=== PATIENT | male | born 1940 | race Caucasian/White ===

== ENCOUNTER 2020-06-26 14:47 | Inpatient (IN) | payer MEDICARE, SELFPAY ==
[~2020-06-26] VITALS: Ht 170.2 cm; Wt 75.3 kg
[2020-06-26 14:57] VITALS: BP 118/72
[2020-06-26] MEDS ORDERED: LORazepam 2 MG/ML VIAL IVP ONE (15:05)
--- NOTE | 2020-06-26 15:20 | NUR ---
DUNG SWAB DONE. WALKED TO LAB.
--- NOTE | 2020-06-26 15:20 | NUR ---
XRAY AT BEDSIDE
--- NOTE | 2020-06-26 15:25 | NUR ---
79YO M BIBA FROM HOME C/O SOB UPON EXERTION X 1 WEEK. PT ALSO REPORTS HAVING CHILLS. DENIES COUGH, FEVER. IN ED, VSS. AOX4. 02 SAT 98% ON RA. CLEAR BREATH SOUNDS. HR NORMAL RATE REGULAR RHYTHM. PT RESTING IN BED COMFORTABLY. ERMD MADE AWARE OF PT STATUS. PMH: CARDIAC DSE, HTN, DM NKA
[2020-06-26 15:55] LABS: HEMATOCRIT 42.1 % (36-52); HEMOGLOBIN 13.6 g/dL (12.0-18.0); MEAN CORPUSCULAR HEMOGLOBIN 29 pg (27-31); MEAN CORPUSCULAR HGB CONC 32 g/dL (33-37); MEAN CORPUSCULAR VOLUME 89.8 fL (80-94); PLATELET COUNT (AUTO) 146 K/uL (140-450); RED BLOOD CELL COUNT(AUTO) 4.69 MIL/uL (4.20-6.10); RED CELL DISTRIBUTION WIDTH 15.4 % (11.6-13.7); WHITE BLOOD COUNT (AUTO) 19.9 K/uL (4.8-10.8)
[2020-06-26 16:18] LABS: ALBUMIN 4.4 g/dL (3.4-5.0); ANION GAP 20.1 (8-16); ASPARTATE AMINOTRANSFERASE 22 U/L (15-37); CARBON DIOXIDE 19.2 mmol/L (21-32); CHLORIDE 102 mmol/L (98-107); CREATININE 1.7 mg/dL (0.6-1.3); GLUCOSE 147 mg/dL (74-106); POTASSIUM 4.3 mmol/L (3.5-5.1); SODIUM SERUM 137 mmol/L (136-145); TOTAL BILIRUBIN 3.1 mg/dL (0.0-1.0); UREA NITROGEN, BLOOD 20 mg/dL (7-18)
[2020-06-26 16:27] LABS: LYMPHOCYTES % (MANUAL) 6 % (20-46); MONOCYTES % (MANUAL) 7 % (5-12)
[2020-06-26 16:33] LABS: C-REACTIVE PROTEIN QUANT 1.3 mg/dL (0.0-0.9)
[2020-06-26] MEDS ORDERED: PIPERACILLIN/TAZOBACTAM 3.375 GM in DEXTROSE 5% 50 ML IV ONE (16:35)
[2020-06-26] MEDS ORDERED: NACL 0.9% 500 ML IV ONE (16:35)
[2020-06-26] MEDS ORDERED: VANCOMYCIN 1,000 MG in DEXTROSE 5% 250 ML IV ONE (16:35)
[2020-06-26] MEDS ORDERED: ACETAMINOPHEN 325 MG TAB PO ONE (16:35)
[2020-06-26] MEDS ORDERED: PIPERACILLIN/TAZOBACTAM 3.375 GM VIAL IV ONE (17:16)
[2020-06-26 17:28] LABS: APPEARANCE,URINE CLEAR (CLEAR); BILIRUBIN,URINE NEGATIVE (NEGATIVE); BLOOD, URINE NEGATIVE (NEGATIVE); COLOR,URINE YELLOW (YELLOW); LEUKOCYTE ESTERASE ,URINE NEGATIVE (NEGATIVE); NITRITE, URINE NEGATIVE (NEGATIVE); UGLUCOSE NEGATIVE (NEGATIVE)
[2020-06-26] MEDS ORDERED: ASPIRIN 81 MG TAB.CHEW PO ONE (17:35)
[2020-06-26] MEDS ORDERED: ACETAMINOPHEN 325 MG TAB ONE ×2 (17:53→17:54)
[2020-06-26 18:00] LABS: PROTHROMBIN TIME 11.6 secs (10.8-13.4)
[2020-06-26] MEDS ORDERED: VANCOMYCIN 1,000 MG VIAL ONE (18:02)
--- NOTE | 2020-06-26 19:36 | NUR ---
RECEIVED REPORT FROM RADHA DAILEY FOR CONTINUATION OF CARE. PT RESTING. VISIBLE RISE AND FALL OF CHEST NOTED. PT CONNECTED TO THE ELECTRONIC WARFARE OFFICER. WILL CONTINUE TO MONITOR.
--- NOTE | 2020-06-26 19:36 | NUR ---
REPORT GIVEN TO RADHA MÁRQUEZ. ALL CARE REANSFERRED AT THIS TIME
--- NOTE | 2020-06-26 20:43 | NUR ---
CALLED TO GIVE REPORT, NURSE UNABLE TO RECEIVE REPORT AT THIS TIME WILL CALL BACK IN 5-10 MINS.
--- NOTE | 2020-06-26 20:52 | NUR ---
CALLED TO GIVE REPORT TO RADHA GALE FOR TRANSFER OF CARE AND ADMISSION TO THE TELEMETRY FLOOR.
[2020-06-26 21:30] VITALS: BP 97/45
--- NOTE | 2020-06-26 21:30 | NUR ---
RECEIVED PATIENT FROM ER VIA [facility] FOR CONTINUITY OF CARE. AAOX3. RESPIRATIONS EVEN, UNLABORED. CONTINUES ON O2 4L VIA NC, O2SAT 96%. SKIN ASSESSMENT COMPLETED. SKIN IS INTACT. SALINE LOCK TO LEFT FOREARM 20G PATENT/INTACT. NO C/O PAIN. NO S/S ACUTE DISTRESS. ABDOMEN SOFT, NONTENDER. BOWEL SOUNDS ACTIVE X4 QUADRANTS. PATIENT IS CONTINENT OF B/B. PATIENT ORIENTED TO ROOM/STAFF/CALL LIGHT. MSRA SCREEN COMPLETED. PLAN OF CARE DISCUSSED. SAFETY PRECAUTIONS IN PLACE. CALL LIGHT WITHIN REACH.
--- NOTE | 2020-06-26 21:30 | NUR ---
Patient will be admitted to care of . Admited to TELEMETRY. Will go to [id number]. Belongings list completed. Report to RADHA GALE.
[2020-06-26] MEDS ORDERED: POTASSIUM CHLORIDE 40 MEQ, LIDOCAINE MPF 1% 25 MG in NACL 0.9% 250 ML IV PRN (21:55)
[2020-06-26] MEDS ORDERED: ONDANSETRON 4 MG/2 ML VIAL IM/IVP PRN (21:55)
[2020-06-26] MEDS ORDERED: guaiFENesin DM 200/20 MG-10 ML 10 ML UDC PO PRN (21:55)
[2020-06-26] MEDS ORDERED: ACETAMINOPHEN 325 MG TAB PO PRN (21:55)
[2020-06-26] MEDS ORDERED: DOCUSATE SODIUM 100 MG GELCAP PO PRN (21:55)
[2020-06-26] MEDS ORDERED: ZOLPIDEM 5 MG TAB PO PRN (21:55)
[2020-06-26] MEDS ORDERED: HYDROcodone/APAP 7.5/325 MG 1 TAB PO PRN (21:55)
[2020-06-26] MEDS ORDERED: ALBUTEROL HFA MDI 90 MCG/ACTUATION 8 GM INH PRN (22:05)
[2020-06-26] MEDS ORDERED: ALBUTEROL SULFATE/IPRATROPIU 3 ML SOL IH PRN (22:05)
[2020-06-26] MEDS: lisinopriL 5 MG TAB PO SCH (22:15)
[2020-06-26] MEDS: METOPROLOL 25 MG TAB PO SCH (22:15)
[2020-06-26] MEDS ORDERED: NITROGLYCERIN 0.4 MG TAB SL PRN (22:15)
[2020-06-26 23:21] LABS: CHOL/HDL RATIO 1.9 (1-4.5); FREE T4 (FREE THYROXINE) 1.72 ng/dL (0.76-1.46); MAGNESIUM 1.4 mg/dL (1.8-2.4); PHOSPHORUS 2.7 mg/dL (2.5-4.9); THYROID STIMULATING HORMONE 0.94 uIU/mL (0.34-3.74)
--- NOTE | 2020-06-26 23:30 | NUR ---
PATIENT RESTING COMFORTABLY IN BED. NO S/S ACUTE DISTRESS. CALL LIGHT WITHIN REACH. SAFETY PRECAUTIONS IN PLACE.
[2020-06-27] VITALS: BP 97/45
[2020-06-27 00:07] LABS: BARBITURATE, URINE NEGATIVE ng/ml (NEG <=200); BENZODIAZEPINE, URINE NEGATIVE ng/mL (NEG <=200); CANNABINOID, URINE NEGATIVE ng/mL (NEG <=50); COCAINE, URINE NEGATIVE ng/mL (NEG <=300); OPIATE, URINE NEGATIVE ng/mL (NEG <=2000); PHENCYCLIDINE SCREEN,URINE NEGATIVE ng/mL (NEG <=25)
[2020-06-27] MEDS: ALBUTEROL SULFATE/IPRATROPIU 3 ML SOL IH SCH ×4 (01:00→19:00)
--- NOTE | 2020-06-27 01:00 | NUR ---
MADE ROUNDS. PATIENT IS ASLEEP. NO S/S ACUTE DISTRESS. CALL LIGHT WITHIN REACH. SAFETY PRECAUTIONS IN PLACE.
--- NOTE | 2020-06-27 03:33 | NUR ---
PATIENT ASLEEP. NO S/S ACUTE DISTRESS. CALL LIGHT WITHIN REACH.
[2020-06-27] MEDS ORDERED: PIPERACILLIN/TAZOBACTAM 3.375 GM VIAL IV ONE (03:59)
[2020-06-27] MEDS: PIPERACILLIN/TAZOBACTAM 3.375 GM in DEXTROSE 5% 50 ML IV SCH ×3 (04:03→20:49)
[2020-06-27 06:34] VITALS: BP 107/49
[2020-06-27 07:01] LABS: BASOPHILS % (AUTO) 0.3 % (0.0-2.0); EOSINOPHILS % (AUTO) 0.1 % (0.0-4.0); HEMATOCRIT 40.5 % (36-52); HEMOGLOBIN 13.1 g/dL (12.0-18.0); LYMPHOCYTES # (AUTO) 0.7 K/uL (2.0-11.5); MEAN CORPUSCULAR HEMOGLOBIN 29 pg (27-31); MEAN CORPUSCULAR HGB CONC 32 g/dL (33-37); MEAN CORPUSCULAR VOLUME 89.7 fL (80-94); MONOCYTES # (AUTO) 0.6 K/uL (0.8-1.0); MONOCYTES % (AUTO) 3.8 % (1.7-9.3); NEUTROPHILS # (AUTO) 13.3 K/uL (1.8-7.7); NEUTROPHILS % (AUTO) 90.8 % (42.2-75.2); PLATELET COUNT (AUTO) 124 K/uL (140-450); RED BLOOD CELL COUNT(AUTO) 4.51 MIL/uL (4.20-6.10); RED CELL DISTRIBUTION WIDTH 15.7 % (11.6-13.7); WHITE BLOOD COUNT (AUTO) 14.7 K/uL (4.8-10.8)
--- NOTE | 2020-06-27 07:20 | NUR ---
RECEIVED PT FROM [facility] SHIFT NURSE, PT IS AWAKE AND LYING ON THE BED WITH SAFETY AND FALL PRECAUTION IN PLACE, SIDE RAILS ARE UP AND CALL LIGHT WITHIN REACH, IV LINE NOTED ON THE LFA G.20 ON SALINE LOCK, PT IS ON O2 4L NC, DENIES PAIN AND NO SIGN OF DISTRESS NOTED, WILL MONITOR PT.
[2020-06-27 07:42] LABS: ANION GAP 17.6 (8-16); CARBON DIOXIDE 22.5 mmol/L (21-32); CHLORIDE 102 mmol/L (98-107); GLUCOSE 148 mg/dL (74-106); POTASSIUM 4.1 mmol/L (3.5-5.1); SODIUM SERUM 138 mmol/L (136-145); UREA NITROGEN, BLOOD 24 mg/dL (7-18)
[2020-06-27 08:00] VITALS: BP 100/50
[2020-06-27] MEDS: METOPROLOL 25 MG TAB PO SCH ×2 (09:00→20:55)
[2020-06-27] MEDS: lisinopriL 5 MG TAB PO SCH (09:00)
--- NOTE | 2020-06-27 09:05 | NUR ---
PATIENT HAS BEEN SCREENED AND CATEGORIZED MODERATE NUTRITION RISK. PATIENT WILL BE SEEN WITHIN 3-5 DAYS OF ADMISSION. 06/29/20 07/01/[address]
[2020-06-27] MEDS: PANTOPRAZOLE 40 MG TABEC PO SCH (10:47)
[2020-06-27] MEDS: ECOTRIN 81 MG TABEC PO SCH (10:47)
--- NOTE | 2020-06-27 10:53 | NUR ---
PT WAS GIVEN THE SCHEDULED AM MEDICATIONS NOW, PARAMETERS CHECKED, BP MEDICATIONS WERE HELD D/T BP IS 100/50 AND PULSE IS 50, NO SIGN OF DISTRESS NOTED, TOLERATED MEDICATIONS AND WILL CONTINUE TO MONITOR PT.
--- NOTE | 2020-06-27 10:59 | NUR ---
SCHEDULED MEDICATIONS ADMINISTERED, METOPROLOL AND LISINOPRIL HELD PER PARAMETERS, BP 100/6O, HR 56, EDUCATION PROVIDED, PT VERBALIZED UNDERSTANDING, WILL CONTINUE TO MONITOR.
[2020-06-27 12:00] VITALS: BP_SYST 100; BP_SYST 98; BP_DIAS 50
--- NOTE | 2020-06-27 12:00 | NUR ---
SOCIAL WORK NOTE: Patient's Orientation Unable To Assess Information Provided By YULIA SAMPSON - DAUGHTER Comments SW WAS UANABLE TO MEET PATIENT AT BEDSIDE TO COMPLETE ASSESSMENT. SW COMPLETED ASSESSMENT WITH PATIENT'S DAUGHTER, YULIA SAMPSON. Purchasing Assistant, Realtionship and Phone Number YULIA SAMPSON DAUGHTER [phone] [facility] Power of Grain Unloader Machine No Does Patient Have a POLST No Identifying Problems No Social Work Triggers Is A Social Work Consult Needed No Mandate Report Filed No Explanation Of Identifying Problems PATIENT IS A 79-YEAR-OLD MALE ADMITTED FOR SEVERE SEPSIS AND NSTEMI. PATIENT HAS PMHX OF DIABETES AND HYPERTENSION. PER DAUGHTER, PATIENT HAS NO HSITORY OF SUBSTANCE ABUSE OR MENTAL HEALTH. Admitted From Home Pre-Admission Level Of Functioning Status Independent/Ambulatory Prior Resources/Services Used In Last 12 Months No Prior Resources Used Prior DME No Prior DME Used Dialysis Comments N/A Living Situation Lives With Family House Other Living Situation/Comment PER DAUGHTER, PATIENT LIVES WITH HIS SON. Patient Had Caregiver No Home Support No Caregiver Issues Financial Issues No Known Financial Issue Referral To The Financial Counselor Needed No Factors/Needs No D/C Needs Identified Explanation And Or Other Factors Affecting/Possible DC Needs PATIENT'S DAUGHTER STATED THAT SHE WOULD COORDINATE TRANSPORTATION ARRANGEMENTS FOR PATIENT ONCE DISCHARGED. Pt/Rep Participated In Discharge Plan Yes Patient/Family Agress With Discharge Plan Yes Discharge Plan Comments TENTATIVE DISCHARGE PLAN IS FOR PATIENT TO RETURN HOME. DC Plan Status Initiated
--- NOTE | 2020-06-27 12:36 | NUR ---
SCHEDULED ZOSYN ADMINISTERED, IV LINE FLUSHED AND PATENT, PT IS RESTING IN BED, NO SIGNS OF DISTRESS NOTED, WILL CONTINUE TO MONITOR.
--- NOTE | 2020-06-27 13:50 | NUR ---
PT IS OFF THE UNIT NOW FOR A CT CHEST WITHOUT CONTRAST.
--- NOTE | 2020-06-27 14:20 | NUR ---
PT IS BACK TO UNIT NOW FROM A CT CHEST WITHOUT CONTRAST.
--- NOTE | 2020-06-27 15:08 | NUR ---
ULTRASOUND OF THE KIDNEYS IS BEING DONE TO PT NOW.
--- NOTE | 2020-06-27 15:30 | NUR ---
ULTRASOUND OF THE KIDNEYS WAS FINISHED NOW.
[2020-06-27] MEDS: NACL 0.45% 1,000 ML IV SCH (15:39)
[2020-06-27 16:00] VITALS: BP 102/54
--- NOTE | 2020-06-27 16:16 | NUR ---
DC PLANNIN YRS OLD MALE PATIENT WAS ADMITTED FROM HOME, WITH A DX OF SEVER SEPSIS , NSTEMI, PNEUMONIA. PT HAS A HX OF HTN AND CHRONIC LUNG DISEASE . CXR SHOWED CARDIOMEGALY WITH PULMONARY VASCULAR CONGESTION AND MILD INTERSTITIAL EDEMA. CT CHEST SHOWED SMALL TO MODERATE RIGHT PLURAL EFFUSION .RAPID COVID TEST NEGATIVE. BLOOD AND URINE CULTURE PENDING. CONSULTED WITH NEPHRO AND PULMO. DC PLAN TO GO HOME WHEN STABLE. CALLED [facility] DARIA[facility] REGARDING TRANSFER TO CONTRACTED FACILITY PER DARIANA [place] AND [place] ARE FULL CAPACITY AND WILL APPROVE FOR THE STAY. CM TO FOLLOW.
[2020-06-27] MEDS: ATORVASTATIN 20 MG TAB PO SCH (18:06)
--- NOTE | 2020-06-27 18:10 | NUR ---
SCHEDULED MEDICATION ADMINISTERED, PT IS RESTING IN BED WATCHING TV, EDUCATION PROVIDED, PT VERBALIZED UNDERSTANDING, WILL CONTINUE TO MONITOR.
--- NOTE | 2020-06-27 19:15 | NUR ---
ENDORSED PT TO FRUIT CANNER NURSE FOR CONTINUITY OF CARE.
--- NOTE | 2020-06-27 19:20 | NUR ---
RECEIVED PT SLEEPING, EASILY AROUSABLE, AAOX4, ON O2 2L VIA NC, DENIES ANY PAIN, NO SOB NOTED, IVF INFUSING WELL, ON DROPLET PRECAUTION FOR R/O COVID, SAFETY MEASURES IN PLACE, CALL LIGHT WITHIN REACH.
--- NOTE | 2020-06-27 19:54 | NUR ---
* ST NOTE * Pt seen at bedside after receiving clearance from AM shift RN (Betty). Pt alert, cooperative and engaged throughout session, reporting no c/o pain at this time w/dinner tray. Pt consenting to evaluation during pt's dinner time. Bedside Dysphagia and Oral Mechanism Exams completed. See evaluation report for further details. Pt presenting with oral phase and suspected pharyngeal phase of swallow to be WFL, as characterized by adequate mandibular, buccal, oral labial and lingual strength, adequate bolus manipulation and A-P bolus transit, along with timely swallow initiation and complete laryngeal excursion upon palpation. Pt also demo'ing no overt s/s of aspiration during or after PO intake, w/pt tolerating least restrictive PO diet consistency available. No further OFFICE AUDITOR services indicated at this time, w/pt stable on regular solids w/thin liquids w/aspiration precautions in place during pt's PO intake. Pt and RN (Andres) education completed re: results of evaluation; benefits of abiding by aspiration precautions; and prognosis for improvement; with pt and RN verbalizing understanding and agreement w/clinician's recommendations. Recommend: - PO DIET CONSISTENCY OF REGULAR SOLIDS W/THIN LIQUIDS for all meals - WHOLE PILL MEDICATION ADMINISTRATION 1 PILL AT A TIME TOLERATED, OR MIXED W/PUREE TEXTURES - MAINTAIN ASPIRATION PRECAUTIONS IN PLACE DURING PT'S PO INTAKE - CUE/REMIND PT TO SIT UPRIGHT, ALTERNATE BTWN SOLIDS AND LIQUIDS, SLOW RATE OF INTAKE, AND TO TAKE SMALL BITES/SIPS No further ST follow up indicated at this time.
[2020-06-27 20:00] VITALS: BP 106/42
--- NOTE | 2020-06-27 21:40 | NUR ---
PT TRIGGERED BED ALARM, SEEN SITTING ON SIDE OF BED, PT WANTS TO VOID, OFFERED URINAL BUT UNABLE TO GO AT THIS TIME, PT WENT BACK TO SLEEP, SIDE RAILS UP AND BED ALARM ON FOR FALL PRECAUTION.
--- NOTE | 2020-06-27 23:00 | NUR ---
PT ABLE TO VOID FREELY PER URINAL, URINE SPECIMEN SENT TO LAB FOR TEST.
[2020-06-28] VITALS: BP_SYST 101; BP_DIAS 44; BP_DIAS 49
[2020-06-28] MEDS: ALBUTEROL SULFATE/IPRATROPIU 3 ML SOL IH SCH ×4 (01:00→19:00)
[2020-06-28 04:00] VITALS: BP 110/51
--- NOTE | 2020-06-28 04:20 | NUR ---
PT SLEEPING, NO SIGNS OF RESP DISTRESS, MONITORED CLOSELY.
[2020-06-28] MEDS: PIPERACILLIN/TAZOBACTAM 3.375 GM in DEXTROSE 5% 50 ML IV SCH ×3 (05:31→21:42)
[2020-06-28 06:11] LABS: BASOPHILS % (AUTO) 0.2 % (0.0-2.0); EOSINOPHILS # (AUTO) 0.3 K/uL (0-0.4); EOSINOPHILS % (AUTO) 2.7 % (0.0-4.0); HEMATOCRIT 36.7 % (36-52); HEMOGLOBIN 12.2 g/dL (12.0-18.0); LYMPHOCYTES # (AUTO) 1.5 K/uL (2.0-11.5); LYMPHOCYTES % (AUTO) 14.3 % (20.5-51.1); MEAN CORPUSCULAR HEMOGLOBIN 30 pg (27-31); MEAN CORPUSCULAR HGB CONC 33 g/dL (33-37); MEAN CORPUSCULAR VOLUME 89.5 fL (80-94); MONOCYTES % (AUTO) 9.4 % (1.7-9.3); NEUTROPHILS # (AUTO) 7.9 K/uL (1.8-7.7); NEUTROPHILS % (AUTO) 73.4 % (42.2-75.2); PLATELET COUNT (AUTO) 99 K/uL (140-450); RED BLOOD CELL COUNT(AUTO) 4.09 MIL/uL (4.20-6.10); RED CELL DISTRIBUTION WIDTH 15.1 % (11.6-13.7); WHITE BLOOD COUNT (AUTO) 10.8 K/uL (4.8-10.8)
[2020-06-28 06:30] LABS: ALBUMIN 3.1 g/dL (3.4-5.0); ANION GAP 14.6 (8-16); ASPARTATE AMINOTRANSFERASE 30 U/L (15-37); CARBON DIOXIDE 23.2 mmol/L (21-32); CHLORIDE 100 mmol/L (98-107); CREATININE 1.7 mg/dL (0.6-1.3); GLUCOSE 125 mg/dL (74-106); POTASSIUM 3.8 mmol/L (3.5-5.1); SODIUM SERUM 134 mmol/L (136-145); TOTAL BILIRUBIN 2.4 mg/dL (0.0-1.0); UREA NITROGEN, BLOOD 21 mg/dL (7-18)
[2020-06-28 06:32] LABS: MAGNESIUM 1.6 mg/dL (1.8-2.4); PHOSPHORUS 2.9 mg/dL (2.5-4.9)
--- NOTE | 2020-06-28 07:30 | NUR ---
PT SLEEPING, NO SIGNS OF DISTRESS, REPORT GIVEN TO RADHA VEGA FOR CONTINUITY OF CARE.
[2020-06-28 08:00] VITALS: BP 112/69
--- NOTE | 2020-06-28 08:00 | NUR ---
RECEIVED REPORT FROM THE JUMP IRON MACHINE PRESSER FOR CONTINUITY OF CARE. PATIENT ALERT AWAKE ORIENTED X4, NOT IN ANY DISTRESS NOTED. INITIAL ASSESSMENT INITIATED. ON MONITOR SHOWS A. FLUTTER. WITH IVF ON GOING AND INFUSING WELL. ON O2 1L NC SATURATION 99%. ISOLATION PRECAUTION OBSERVED. NEEDS ATTENDED. WILL CONTINUE TO MONITOR.
[2020-06-28 08:07] LABS: T4 (THYROXINE) 9.9 ug/dL (4.5-12.0)
[2020-06-28] MEDS: METOPROLOL 25 MG TAB PO SCH ×2 (09:07→21:43)
[2020-06-28] MEDS: PANTOPRAZOLE 40 MG TABEC PO SCH (09:08)
[2020-06-28] MEDS: ECOTRIN 81 MG TABEC PO SCH (09:08)
[2020-06-28] MEDS: lisinopriL 5 MG TAB PO SCH (09:08)
[2020-06-28] MEDS: NACL 0.45% 1,000 ML IV SCH (11:55)
[2020-06-28 12:00] VITALS: BP 101/58
--- NOTE | 2020-06-28 12:00 | NUR ---
RECORDAK OPERATOR INSIDE THE ROOM DOING PROCEDURE. URINE SPECIMEN SENT TO LAB. WILL CONTINUE TO MONITOR.
[2020-06-28 16:00] VITALS: BP 121/70
--- NOTE | 2020-06-28 16:00 | NUR ---
PATIENT RESTING IN BED, WATCHING TV, NOT IN ANY DISTRESS NOTED. WILL CONTINUE TO MONITOR.
[2020-06-28] MEDS: ATORVASTATIN 20 MG TAB PO SCH (17:14)
--- NOTE | 2020-06-28 18:44 | NUR ---
DUE MEDICATION GIVEN AND TOLERATED WELL, DENIES PAIN AND SOB. RESTING IN BED. WILL CONTINUE TO MONITOR.
--- NOTE | 2020-06-28 19:35 | NUR ---
REPORT GIVEN TO THE NEXT SHIFT FOR CONTINUITY OF CARE. IN STABLE CONDITION.
--- NOTE | 2020-06-28 19:37 | NUR ---
RECEIVED PT IN STABLE CONDITION FROM PR NURSE. AWAKE,ALERT AND ORIENTED X4. ON TELE MONITOR. DROPLET ISOLATION , COVID TEST STILL PENDING ON PCR. ON O2 1 L/NC. NO SOB NOTED. HAS IVF INFUSING WELL ON THE LT FA G@20. CLEAR AND PATENT. BEDREST. FREQ ROUNDS NEEDED. BED ON LOW POSITION, SIDE RAILS UP X2. CALL LIGHT AND URINAL WITHIN REACH. WILL CONTINUE TO MONITOR.
[2020-06-28 20:00] VITALS: BP 110/61
--- NOTE | 2020-06-28 21:00 | NUR ---
ALL DUE MEDS GIVEN . NO C/O ANY DISCOMFORT NOTED.
[2020-06-28] MEDS ORDERED: CRUSHER, PILL MC ONE (21:41)
--- NOTE | 2020-06-28 23:00 | NUR ---
MADE ROUNDS PT. IS SLEEPING. NO S/S OF ANY DISCOMFORT NOR ANY SOB NOTED.
[2020-06-29] VITALS: BP 126/54
[2020-06-29] MEDS: ALBUTEROL SULFATE/IPRATROPIU 3 ML SOL IH SCH (01:00)
--- NOTE | 2020-06-29 01:00 | NUR ---
CHECKED ON PT. ASLEEP.NO S/S OF ANY RESPIRATORY DISTRESS NOTED. WILL CONTINUE TO MONITOR.
--- NOTE | 2020-06-29 03:10 | NUR ---
INTERNET SECURITY SPECIALIST ASKED TO CHECK PT. ASLEEP. HE SAID HE IS OK . NO PAIN NOTED.
[2020-06-29] MEDS: PIPERACILLIN/TAZOBACTAM 3.375 GM in DEXTROSE 5% 50 ML IV SCH ×3 (04:45→22:02)
[2020-06-29 05:00] VITALS: BP 113/60
--- NOTE | 2020-06-29 05:00 | NUR ---
ZOSYN IVPB GIVEN.. PT ASLEEP. NO SOB NOTED.
[2020-06-29] MEDS: NACL 0.45% 1,000 ML IV SCH (06:50)
[2020-06-29 07:16] LABS: BASOPHILS % (AUTO) 0.3 % (0.0-2.0); EOSINOPHILS # (AUTO) 0.3 K/uL (0-0.4); EOSINOPHILS % (AUTO) 3.8 % (0.0-4.0); HEMATOCRIT 39.3 % (36-52); HEMOGLOBIN 13.1 g/dL (12.0-18.0); LYMPHOCYTES # (AUTO) 1.8 K/uL (2.0-11.5); LYMPHOCYTES % (AUTO) 23.6 % (20.5-51.1); MEAN CORPUSCULAR HEMOGLOBIN 30 pg (27-31); MEAN CORPUSCULAR HGB CONC 33 g/dL (33-37); MEAN CORPUSCULAR VOLUME 88.9 fL (80-94); MONOCYTES # (AUTO) 0.8 K/uL (0.8-1.0); MONOCYTES % (AUTO) 10.1 % (1.7-9.3); NEUTROPHILS # (AUTO) 4.8 K/uL (1.8-7.7); NEUTROPHILS % (AUTO) 62.2 % (42.2-75.2); PLATELET COUNT (AUTO) 108 K/uL (140-450); RED BLOOD CELL COUNT(AUTO) 4.42 MIL/uL (4.20-6.10); RED CELL DISTRIBUTION WIDTH 15.6 % (11.6-13.7); WHITE BLOOD COUNT (AUTO) 7.7 K/uL (4.8-10.8)
[2020-06-29 07:25] LABS: ANION GAP 13.2 (8-16); CARBON DIOXIDE 22.7 mmol/L (21-32); CHLORIDE 104 mmol/L (98-107); CREATININE 1.4 mg/dL (0.6-1.3); GLUCOSE 111 mg/dL (74-106); POTASSIUM 3.9 mmol/L (3.5-5.1); SODIUM SERUM 136 mmol/L (136-145); UREA NITROGEN, BLOOD 17 mg/dL (7-18)
--- NOTE | 2020-06-29 07:30 | NUR ---
ENDORSED PT 9N STABLE CONDITION TO AM NURS.E
--- NOTE | 2020-06-29 07:35 | NUR ---
RECEIVED REPORT FROM NIGHT NURSE PATIENT IS AAOX4, 1LPM OXYGEN NC, AMBULATORY, SKIN INTACT, STRICT I&O IV SITES INTACT AND PATENT ON LEFT FOREARM. SAFETY ,MEASURES IN PLACE AND CALL LIGHT WITHIN REACH. WILL CONTINUE TO MONITOR.
[2020-06-29 08:00] VITALS: BP 125/54
--- NOTE | 2020-06-29 09:30 | NUR ---
MEDICATION DUE GIVEN CHECK VITAL SIGNS PRIOR TO MEDICATION BP 125/54 TN 48. PATIENT IS SLOW HEART RATE ON MENTAL HEALTH CLINICIAN.
[2020-06-29] MEDS: METOPROLOL 25 MG TAB PO SCH ×2 (09:49→22:02)
[2020-06-29] MEDS: PANTOPRAZOLE 40 MG TABEC PO SCH (09:49)
[2020-06-29] MEDS: ECOTRIN 81 MG TABEC PO SCH (09:50)
[2020-06-29] MEDS: lisinopriL 5 MG TAB PO SCH (09:50)
--- NOTE | 2020-06-29 11:30 | NUR ---
PATIENT IS SLEEPING NO DISTRESS NOTED AND DENIES PAIN. STILL BRADYCARDIA HEART RATE AT 38 BPM
[2020-06-29 12:00] VITALS: BP 118/62
--- NOTE | 2020-06-29 12:30 | NUR ---
MADE ROUNDS CHECK VITAL SIGNS BP 118/62 MT 40. NO DISTRESS NOTED
--- NOTE | 2020-06-29 14:00 | NUR ---
PATIENT IS AWAKE AND ENCOURAGE TO MOVE AROUND AND BREATHING EXERCISE. STILL PENDING ON PCR.
--- NOTE | 2020-06-29 14:56 | NUR ---
P.T. NOTES D/C FROM P.T. AFTER TX, ENDORSED TO NURSING; O2 SAT ROOM AIR=97%
[2020-06-29 16:00] VITALS: BP 119/57
[2020-06-29 16:39] LABS: CHLORIDE,URINE RANDOM 52 mmol/L (110-250); CREATININE,URINE RANDOM 102 mg/dL (30-125)
[2020-06-29] MEDS: ATORVASTATIN 20 MG TAB PO SCH (16:51)
--- NOTE | 2020-06-29 17:00 | NUR ---
MEDICATION DUE GIVEN BRAYCARDIA ON TELEMONITOR MS 41
--- NOTE | 2020-06-29 19:22 | NUR ---
ENDORSED TO NIGHT NURSE FOR CONTINUITY OF CARE. PT IS STABLE
--- NOTE | 2020-06-29 19:25 | NUR ---
RECEIVED PT IN STABLE CONDITION FROM AM NURSE. TELE PT. AWAKE,ALERT AND ORIENTED 4. ON COVID ISOLATION PRECAUTION ENFORCED. ON O2 1L /NC. NO SOB NOTED. PLAN OF CARE DISCUSSED AND VERBALIZED UNDERSTANDING. FREQ ROUNDS NEEDED. BED ON LOW POSITION. SIDE RAILS UP X2. CALL LIGHT PLACED WITHIN EASY REACH. INSTRUCTED TO CALL FOR ANT PROBLEM AND ASSISTANCE NEEDED. WILL CONTINUE TO MONITOR.
[2020-06-29 20:00] VITALS: BP 121/59
[2020-06-29] MEDS ORDERED: MAGNESIUM OXIDE 400 MG TAB PO SCH (20:30)
--- NOTE | 2020-06-29 21:30 | NUR ---
ALL DUE MEDS GIVEN TO PT. NO C/O ANY PAIN NOR DISCOMFORT NOTED.
--- NOTE | 2020-06-29 23:00 | NUR ---
CHECKED ON PT. ASLEEP. NO S/S OF ANY DISTRESS NOTED.
[2020-06-30 00:30] VITALS: BP 120/56
--- NOTE | 2020-06-30 02:00 | NUR ---
MADE ROUNDS. PT IS ASLEEP. NO S/S OF ANY DISTRESS NOTE.
[2020-06-30] MEDS: NACL 0.45% 1,000 ML IV SCH ×3 (02:50→22:50)
[2020-06-30 04:00] VITALS: BP 121/64
--- NOTE | 2020-06-30 04:10 | NUR ---
IV ACCESS ON LT FA PULLED OUT. A NEW IV ACCESS STARTED ON T AC G#22. CLEAR AND PATENT.
[2020-06-30] MEDS: PIPERACILLIN/TAZOBACTAM 3.375 GM in DEXTROSE 5% 50 ML IV SCH ×3 (04:55→20:56)
--- NOTE | 2020-06-30 06:00 | NUR ---
MADE ROUNDS. AWAKE. NO S/S OF ANY DISTRESS NOTED. WILL CONTINUE TO MONITOR.
--- NOTE | 2020-06-30 07:20 | NUR ---
ENDORSED PT IN STABLE CONDITION TO AM NURSE.
--- NOTE | 2020-06-30 07:25 | NUR ---
REC'D BEDSIDE ENDORSEMENT FROM NIGHTSHIFT NURSE. PATIENT IS RESTING AND STABLE. SAFETY MEASURES IN PLACE. WILL CONT W/ CONTINUITY OF CARE.
[2020-06-30 08:00] VITALS: BP 116/57
--- NOTE | 2020-06-30 08:06 | NUR ---
PATIENT HEART RATE 45; VS FOLLOWS: BP 116/57, RR 18, TEMP 96.9, O2 100% 2L NC. PATIENT IS AWAKE AND ALERT, PLACED HOB AT 45 DEGREES, PATIENT DENIES ANY PAIN, NO SIGNS OF DISTRESS. WILL HOLD BLOOD PRESSURE MEDS. PAGED FOR FURTHER POC.
[2020-06-30] MEDS: METOPROLOL 25 MG TAB PO SCH ×2 (08:12→21:00)
[2020-06-30] MEDS: lisinopriL 5 MG TAB PO SCH (08:13)
--- NOTE | 2020-06-30 08:13 | NUR ---
PATIENT PLATELET COUNT 108, HOLDING PRESCRIBED HEPARIN.
[2020-06-30] MEDS: PANTOPRAZOLE 40 MG TABEC PO SCH (09:01)
[2020-06-30] MEDS: MAGNESIUM OXIDE 400 MG TAB PO SCH (09:01)
[2020-06-30] MEDS: ECOTRIN 81 MG TABEC PO SCH (09:02)
--- NOTE | 2020-06-30 09:06 | NUR ---
ADMINISTERED PRESCRIBED MEDS PER MD ORDERS. PATIENT TOLERATED WELL. PATIENT IS AWAKE AND ALERT, EATING BREAKFAST AND WATCHING TV. ABLE TO MAKE NEEDS KNOWN. SAFETY MEASURES IN PLACE. WILL CONT TO MONITOR.
--- NOTE | 2020-06-30 10:14 | NUR ---
HOURLY ROUNDING PERFORMED.PATIENT IS SLEEPING IN BED, AWAKENS TO NAME. DENIES PAIN/SOB. SAFETY MEASURES IN PLACE. WILL CONT TO MONITOR.
--- NOTE | 2020-06-30 11:30 | NUR ---
HOURLY ROUNDING PERFORMED. PATIENT IS RESTING IN BED. NO SIGNS OF DISTRESS. SAFETY MEASURES IN PLACE. WILL CONT TO MONITOR.
[2020-06-30 12:00] VITALS: BP 127/67
[2020-06-30] MEDS: ALBUTEROL SULFATE/IPRATROPIU 3 ML SOL IH SCH ×2 (13:00→19:00)
--- NOTE | 2020-06-30 14:09 | NUR ---
HOURLY ROUNDING PERFORMED. PATIENT IS IN BED WATCHING TV. WANTED TO KNOW WHEN HE WILL BE D/C. ADVSD ONCE MD DECIDES ON FUTURE PLANS I WILL UPDATE. PATIENT DENIES PAIN. ABLE TO MAKE NEEDS KNOWN. SAFETY MEASURES IN PLACE. WILL CONT TO MONITOR
[2020-06-30 16:00] VITALS: BP 129/75
--- NOTE | 2020-06-30 16:45 | NUR ---
REC'D CALL FROM PATIENT DAUGHTER JOSEIFNA BENDER STATUS UPDATE. ADVISED OF PATIENT STATUS. PLACED PHONE IN PATIENT ROOM SO THAT SHE CAN CALL HIM. PATIENT IS IN BED WATCHING TV. SAFETY MEASURES IN PLACE. WILL CONT TO MONITOR.
[2020-06-30] MEDS: ATORVASTATIN 20 MG TAB PO SCH (17:33)
--- NOTE | 2020-06-30 17:45 | NUR ---
ADMINISTERED PRESCRIBED MEDS PER MD ORDER. PATIENT TOLERATED WELL. MEDICATION EDUCATION PROVIDED. PATIENT VERBALIZED UNDERSTANDING. SAFETY MEASURES IN PLACE. WILL CONT TO MONITOR
--- NOTE | 2020-06-30 19:15 | NUR ---
RECEIVED BEDSIDE REPORT FROM DAY SHIFT NURSE FOR CONTINUITY OF CARE. PT IS AWAKE AND ALERT, A&OX4. ON 1L O2 NC WITH O2 SAT AT 100%. BREATHING IS UNLABORED. PT IS BRADYCARDIA ON TELE MONITORING. DOCTOR IS AWARE PER DAY SHIFT NURSE AND CAME TO SEE PATIENT. WILL CONTINUE TO MONITOR HR. URINAL IS AT THE BEDSIDE FOR VOIDING. SKIN IS WARM, DRY, AND INTACT. IV IS IN THE LEFT AC 22 GAUGE RUNNING FLUIDS ORDERED. PLAN OF CARE DISCUSSED. PT IS STABLE AT THIS TIME.
--- NOTE | 2020-06-30 19:58 | NUR ---
PATIENT ENDORSED TO NIGHTSHIFT NURSE. PATIENT IS STABLE
[2020-06-30 20:00] VITALS: BP 130/55
--- NOTE | 2020-06-30 20:54 | NUR ---
HEPARIN WAS NOT ADMINISTERED PER PARAMETERS. PLATELET IS 108. WILL CONTINUE TO MONITOR FOR BLEEDING.
--- NOTE | 2020-06-30 21:16 | NUR ---
HELD METOPROLOL FOR HR OF 45 PER PROTOCOL. BP IS 130/55. PT IS STABLE AT THIS TIME.
--- NOTE | 2020-06-30 23:00 | NUR ---
PT'S IV IS ALARMING. IV WAS FLUSHED AND IS PATENT. FLUIDS WERE RESTARTED. PT STATES HE IS OKAY AT THIS TIME. NO DISTRESS NOTED.
[2020-07-01] VITALS: BP 158/106
--- NOTE | 2020-07-01 | NUR ---
BP WAS TAKEN BY RED HAT LINUX ADMINISTRATOR AND READING WAS 158/106. CUFF WAS READJUSTED AND READING WAS TAKEN AGAIN BY ME. BP WAS 154/97. PT IS STABLE AT THIS TIME.
[2020-07-01] MEDS: ALBUTEROL SULFATE/IPRATROPIU 3 ML SOL IH SCH ×4 (01:00→19:00)
--- NOTE | 2020-07-01 01:00 | NUR ---
ROUNDED ON PT. HE IS TOSSING AND TURNING IN BED. PT APPEARS TO BE STABLE. BRADYCARDIA AND AFIB ON TELE MONITORING. WILL CONTINUE TO MONITOR.
--- NOTE | 2020-07-01 03:00 | NUR ---
PT IS ASLEEP. NO DISTRESS NOTED. CHEST RISE AND FALL IS SYMMETRICAL. BREATHING IS UNLABORED. PT IS ON RA AND O2 SAT IS 97%. IV FLUIDS ARE INFUSING AND IV IS PATENT. PT IS SB ON TELE MONITORING WITH AFIB.
[2020-07-01 04:00] VITALS: BP 137/68
[2020-07-01] MEDS: PIPERACILLIN/TAZOBACTAM 3.375 GM in DEXTROSE 5% 50 ML IV SCH ×2 (04:50→12:44)
--- NOTE | 2020-07-01 05:00 | NUR ---
IV APPEARED TO BE COMING OUT OF SKIN AND LEAKING FLUID. IV DRESSING WAS REMOVED AND ALCOHOL WAS USED TO CLEANSE AREA. NEW IV DRESSING WAS PLACED AND IV IS FLUSHING WELL. NO APPARENT LEAKING. IV IS INTACT. WILL CONTINUE TO MONITOR. PT IS STABLE AT THIS TIME.
--- NOTE | 2020-07-01 07:20 | NUR ---
ENDORSED PT TO DAY SHIFT NURSE FOR CONTINUITY OF CARE. PT IS STABLE AT THIS TIME. PLAN OF CARE DISCUSSED.
--- NOTE | 2020-07-01 07:21 | NUR ---
RECEIVED ENDORSEMENT FROM [place]/TRACK AND FIELD COACH, ASLEEP ON BED, BREATHING SPONTANEOUSLY AT ROOM AIR,NON LABORED NOTED. WITH ONGOING IV FLUID WITH 0.45%NS AT 50ML/HOUR INFUSING AT LEFT AC, G 22 IV CANNULA NOTED. SAFETY MEASURES IN PLACE AND CONTINUE MONITOR.
[2020-07-01 08:00] VITALS: BP 113/62
[2020-07-01] MEDS: METOPROLOL 25 MG TAB PO SCH ×2 (09:00→21:00)
--- NOTE | 2020-07-01 09:02 | NUR ---
AWAKE, NOT IN DISTRESS NOTED
[2020-07-01] MEDS: lisinopriL 5 MG TAB PO SCH (10:19)
[2020-07-01] MEDS: PANTOPRAZOLE 40 MG TABEC PO SCH (10:21)
[2020-07-01] MEDS: ECOTRIN 81 MG TABEC PO SCH (10:21)
[2020-07-01] MEDS: MAGNESIUM OXIDE 400 MG TAB PO SCH (10:25)
--- NOTE | 2020-07-01 11:02 | NUR ---
VOIDED FREELY IN URINAL 400ML OF STRAW YELLOW URINE
[2020-07-01 12:00] VITALS: BP 132/73
--- NOTE | 2020-07-01 13:00 | NUR ---
FULLY AWAKE AND ALERT, DUE MEDICATION GIVEN, LUNCH SERVED AND ABLE TO FEED HIMSELF, ASSISTED WELL
--- NOTE | 2020-07-01 14:57 | NUR ---
AWAKE AND WATCHING TV, NOT IN DISTRESS NOTED.
[2020-07-01 16:00] VITALS: BP 126/52
--- NOTE | 2020-07-01 16:39 | NUR ---
07/01/2020 RD INITIAL ASSESSMENT COMPLETED PLEASE REFER TO NUTRITION ASSESSMENT UNDER CARE ACTIVITY FOR ESTIMATED NUTRITIONAL NEEDS. CONTINUE CURRENT DIET ORDERED RD TO FOLLOW-UP IN 3-5 DAYS PATIENT IS MODERATE RISK. KIAH BARRAGAN RD
[2020-07-01] MEDS: ATORVASTATIN 20 MG TAB PO SCH (17:42)
[2020-07-01] MEDS: NACL 0.45% 1,000 ML IV SCH (17:51)
--- NOTE | 2020-07-01 17:58 | NUR ---
FULLY AWAKE AND ALERT, DUE MEDICATION GIVEN
[2020-07-01 19:22] LABS: BASOPHILS % (AUTO) 0.2 % (0.0-2.0); EOSINOPHILS # (AUTO) 0.2 K/uL (0-0.4); EOSINOPHILS % (AUTO) 2.4 % (0.0-4.0); HEMATOCRIT 42.1 % (36-52); HEMOGLOBIN 13.9 g/dL (12.0-18.0); LYMPHOCYTES # (AUTO) 1.9 K/uL (2.0-11.5); LYMPHOCYTES % (AUTO) 24.4 % (20.5-51.1); MEAN CORPUSCULAR HEMOGLOBIN 29 pg (27-31); MEAN CORPUSCULAR HGB CONC 33 g/dL (33-37); MEAN CORPUSCULAR VOLUME 88.9 fL (80-94); MONOCYTES % (AUTO) 12.8 % (1.7-9.3); NEUTROPHILS # (AUTO) 4.7 K/uL (1.8-7.7); NEUTROPHILS % (AUTO) 60.2 % (42.2-75.2); PLATELET COUNT (AUTO) 166 K/uL (140-450); RED BLOOD CELL COUNT(AUTO) 4.74 MIL/uL (4.20-6.10); WHITE BLOOD COUNT (AUTO) 7.8 K/uL (4.8-10.8)
--- NOTE | 2020-07-01 19:29 | NUR ---
ENDORSED TO HOUSEKEEPER SUPERVISOR IN STABLE CONDITION FOR CONTINUITY OF CARE
--- NOTE | 2020-07-01 19:30 | NUR ---
RECEIVED BEDSIDE REPORT FROM DAY SHIFT NURSE FOR CONTINUITY OF CARE. PT IS AWAKE AND ALERT, A&OX4. ON RA WITH BREATHING UNLABORED. BRADYCARDIA/AFIB ON TELE MONITORING. AMBULATORY WITH ASSISTANCE. URINAL AT THE BEDSIDE WITHIN REACH. SKIN IS WARM, DRY, AND INTACT. BM TODAY PER DAY SHIFT NURSE. IV IS IN THE LEFT FOREARM 22 GAUGE RUNNING HALF NS AT 50 ML PER HOUR PER ORDER. DROPLET PRECAUTION IN PLACE FOR PENDING PCR COVID TEST. [place] RAPID TEST NEGATIVE. PLAN OF CARE DISCUSSED. PT IS STABLE AT THIS TIME.
[2020-07-01 19:37] LABS: ANION GAP 13.4 (8-16); CARBON DIOXIDE 25.6 mmol/L (21-32); CHLORIDE 103 mmol/L (98-107); CREATININE 1.3 mg/dL (0.6-1.3); GLUCOSE 123 mg/dL (74-106); SODIUM SERUM 138 mmol/L (136-145); UREA NITROGEN, BLOOD 13 mg/dL (7-18)
[2020-07-01 19:41] LABS: MAGNESIUM 1.8 mg/dL (1.8-2.4)
[2020-07-01 20:00] VITALS: BP 130/69
--- NOTE | 2020-07-01 21:30 | NUR ---
PT IS AWAKE IN SEMI FOWLERS POSITION, SPEAKING APPROPRIATELY. BREATHING IS UNLABORED ON RA. NO DISTRESS NOTED. 300 ML OF URINE WAS EMPTIED FROM THE URINAL. BED IS IN THE LOWEST POSITION AND CALL LIGHT IS WITHIN REACH. WILL CONTINUE TO MONITOR.
--- NOTE | 2020-07-01 21:44 | NUR ---
HELD METOPROLOL FOR HR OF 59. BP IS 130/67. PT IS STABLE AT THIS TIME.
--- NOTE | 2020-07-01 23:30 | NUR ---
PT IS UP TO THE RESTROOM WITH ASSISTANCE. PT HAD A BM. GAIT IS STEADY WITH STANDBY ASSISTANCE. PT IS BACK IN BED, NO DISTRESS NOTED.
[2020-07-02] VITALS: BP 143/71
[2020-07-02] MEDS: ALBUTEROL SULFATE/IPRATROPIU 3 ML SOL IH SCH ×3 (01:00→13:00)
--- NOTE | 2020-07-02 01:30 | NUR ---
ROUNDED ON PT. HE IS SLEEPING IN SEMI FOWLERS POSITION. ON RA WITH BREATHING UNLABORED. CHEST RISE AND FALL IS SYMMETRICAL. BELONGINGS ARE WITHIN REACH. IV FLUIDS ARE PATENT AND INFUSING. PT IS STABLE.
--- NOTE | 2020-07-02 03:30 | NUR ---
PT'S IV IS LEAKING AND GOWN IS WET. TRANSPARENT DRESSING WAS CHANGED AND IV WAS CLEANED UP WITH ALCOHOL SWABS. PORT CONNECTING TO IV WAS LOOSE THEREFORE IT WAS TIGHTENED BEFORE DRESSING WAS APPLIED. IT IS NOW PATENT AND FLUSHING WELL. GOWN WAS ALSO CHANGED. PT IS STABLE. NOW USING URINAL ON EDGE OF THE BED.
[2020-07-02 04:00] VITALS: BP 139/69
--- NOTE | 2020-07-02 05:30 | NUR ---
PT IS ASLEEP. NO COUGHING, SOB, OR PAIN NOTED. NO RESPIRATORY DISTRESS. PT IS ON TELE MONITORING, AFLUTTER W/ BBB. BED IS IN THE LOWEST POSITION AND URINAL WITHIN REACH. WILL CONTINUE TO MONITOR.
[2020-07-02 06:27] LABS: BASOPHILS % (AUTO) 0.3 % (0.0-2.0); EOSINOPHILS # (AUTO) 0.3 K/uL (0-0.4); HEMATOCRIT 42.2 % (36-52); LYMPHOCYTES % (AUTO) 30.5 % (20.5-51.1); MEAN CORPUSCULAR HEMOGLOBIN 29 pg (27-31); MEAN CORPUSCULAR HGB CONC 33 g/dL (33-37); MEAN CORPUSCULAR VOLUME 88.8 fL (80-94); MONOCYTES # (AUTO) 1.1 K/uL (0.8-1.0); MONOCYTES % (AUTO) 11.3 % (1.7-9.3); NEUTROPHILS # (AUTO) 5.3 K/uL (1.8-7.7); NEUTROPHILS % (AUTO) 54.9 % (42.2-75.2); PLATELET COUNT (AUTO) 188 K/uL (140-450); RED BLOOD CELL COUNT(AUTO) 4.75 MIL/uL (4.20-6.10); RED CELL DISTRIBUTION WIDTH 15.1 % (11.6-13.7); WHITE BLOOD COUNT (AUTO) 9.7 K/uL (4.8-10.8)
[2020-07-02 07:10] LABS: MAGNESIUM 1.9 mg/dL (1.8-2.4); PHOSPHORUS 2.7 mg/dL (2.5-4.9)
[2020-07-02 07:13] LABS: ALBUMIN 3.7 g/dL (3.4-5.0); ANION GAP 13.1 (8-16); ASPARTATE AMINOTRANSFERASE 37 U/L (15-37); CARBON DIOXIDE 24.4 mmol/L (21-32); CHLORIDE 104 mmol/L (98-107); CREATININE 1.2 mg/dL (0.6-1.3); GLUCOSE 103 mg/dL (74-106); POTASSIUM 3.5 mmol/L (3.5-5.1); SODIUM SERUM 138 mmol/L (136-145); TOTAL BILIRUBIN 2.1 mg/dL (0.0-1.0); UREA NITROGEN, BLOOD 12 mg/dL (7-18)
--- NOTE | 2020-07-02 07:17 | NUR ---
ENDORSED PT TO DAY SHIFT NURSE FOR CONTINUITY OF CARE. PT IS STABLE AT THIS TIME. NO DISTRESS NOTED. PLAN OF CARE DISCUSSED.
--- NOTE | 2020-07-02 07:30 | NUR ---
NURSE REPORT OBTAINED REPORT FROM NIGHT NURSE HIREN AND THIS NURSE ASSUMED CARE OF PATIENT UNTIL 193. RECEIVED PATIENT ASLEEP AT BEGINNING OF SHIFT. ON RA. NO C/O PAIN OR SOB. IV 1/2NS AT 50ML/HR.
[2020-07-02 08:00] VITALS: BP 111/65
[2020-07-02] MEDS: METOPROLOL 25 MG TAB PO SCH ×2 (08:40→21:00)
[2020-07-02] MEDS: lisinopriL 5 MG TAB PO SCH (08:41)
[2020-07-02] MEDS: MAGNESIUM OXIDE 400 MG TAB PO SCH (08:52)
[2020-07-02] MEDS: PANTOPRAZOLE 40 MG TABEC PO SCH (08:53)
[2020-07-02] MEDS: ECOTRIN 81 MG TABEC PO SCH (08:53)
[2020-07-02 12:00] VITALS: BP 126/72
[2020-07-02 16:00] VITALS: BP 127/61
[2020-07-02] MEDS: ATORVASTATIN 20 MG TAB PO SCH (18:03)
--- NOTE | 2020-07-02 19:45 | NUR ---
ENDORSED PT TO KEY RINGER NURSE LUCRETIA FOR CONTINUITY OF CARE. PT IS STABLE AT THIS TIME. NO DISTRESS NOTED. PLAN OF CARE DISCUSSED.
--- NOTE | 2020-07-02 19:52 | NUR ---
RECEIVED REPORT FROM [facility] RN DAYSHIFT NURSE FOR CONTINUITY OF CARE, PT IN STABLE CONDITION.
[2020-07-02 20:00] VITALS: BP 119/54
--- NOTE | 2020-07-02 20:00 | NUR ---
PT IN BED AWAKE AND ALERT WITH NO S/S OF PAIN OR DISTRESS NOTED. PT HAS A LEFT AC 22G INTACT AND RUNNING NORMAL SALINE AT 50 MLS/HR. V/S FOLLOWS; T 98.5 P 42 R 19 B/P 119/62 02 96% ON ROOM AIR. ALL FALLS PROTOCOL IN PLACE.
--- NOTE | 2020-07-02 21:00 | NUR ---
PT IN BED RESTING WITH EYES CLOSED, N/S RUNNING ORDERED. V/S FOLLOWS; T 99.2 P 45 R 19 B/P 119/54 02 96% ON ROOM AIR. ORDERED LOPRESSOR HELD DUE TO DECREASED HEART RATE. PT GIVEN HEPARIN ORDERED EDUCATION REGARDING MEDICATION PROVIDED AT BEDSIDE. PT VERBALIZED UNDERSTANDING.
--- NOTE | 2020-07-02 22:00 | NUR ---
PT GIVEN TYLENOL FOR MILD DISCOMFORT.
[2020-07-03] VITALS: BP 129/60
--- NOTE | 2020-07-03 02:00 | NUR ---
PT AWAKE SITTING ON EDGE OF THE BED. HE SAID HE DIDN'T FEEL LIKE LYING DOWN ANYMORE. NO C/O OF PAIN OR DISTRESS NOTED.
--- NOTE | 2020-07-03 03:00 | NUR ---
FLUIDS COMPLETED AND NEW FLUID BAG REPLACED.
[2020-07-03] MEDS: NACL 0.45% 1,000 ML IV SCH ×2 (03:31→03:32)
[2020-07-03 04:00] VITALS: BP 106/48
[2020-07-03] MEDS ORDERED: DEXTROSE 50% 50 ML SYR IVP PRN (05:00)
[2020-07-03] MEDS ORDERED: INSULIN LISPRO SLIDING SCALE 100 UNITS/ML VIAL SUBQ PRN (05:00)
--- NOTE | 2020-07-03 05:30 | NUR ---
PT IN BED RESTING WITH EYES CLOSED. FINGERSTICK ORDEREE DUE TO PT HAVING DM2, AM FINGERSTICK IS 94, NO COVERAGE NEEDED.
[2020-07-03] MEDS: BLOOD GLUCOSE MONITORING 1 DEV DEV FS SCH ×2 (06:00→12:28)
--- NOTE | 2020-07-03 07:45 | NUR ---
RECEIVED PT FROM DIRECTOR SEARCH NURSE, PT IS RESTING IN BED BUT AWAKE, CONTINENT, IV NOTED TO LFA 22G AT 50ML/HR NORMAL SALINE, CONTINENT, SAFETY AND FALL PRECAUTIONS IN PLACE, WILL CONTINUE TO MONITOR.
[2020-07-03 08:00] VITALS: BP 124/66
[2020-07-03] MEDS: MAGNESIUM OXIDE 400 MG TAB PO SCH (08:29)
[2020-07-03] MEDS: PANTOPRAZOLE 40 MG TABEC PO SCH (08:30)
[2020-07-03] MEDS: ECOTRIN 81 MG TABEC PO SCH (08:30)
[2020-07-03] MEDS: METOPROLOL 25 MG TAB PO SCH (08:42)
[2020-07-03] MEDS: lisinopriL 5 MG TAB PO SCH (08:47)
--- NOTE | 2020-07-03 08:48 | NUR ---
SCHEDULED MEDICATIONS ADMINISTERED W/IN PARAMETERS, BP 131/58, HR 58, RR 20 O2 95, BETA RABIA HELD PER PARAMETERS, EDUCATION PROVIDED, PT VERBALIZED UNDERSTANDING, WILL CONTINUE TO MONITOR.
[2020-07-03 09:28] LABS: ANION GAP 14.3 (8-16); CHLORIDE 105 mmol/L (98-107); CREATININE 1.2 mg/dL (0.6-1.3); GLUCOSE 106 mg/dL (74-106); POTASSIUM 4.3 mmol/L (3.5-5.1); SODIUM SERUM 140 mmol/L (136-145); UREA NITROGEN, BLOOD 14 mg/dL (7-18)
[2020-07-03 12:00] VITALS: BP 127/57
--- NOTE | 2020-07-03 12:30 | NUR ---
PT IS RESTING IN BED, BS IS 136,NO COVERAGE NEEDED, WILL CONTINUE TO MONITOR.
[2020-07-03] MEDS ORDERED: AMOX-999 PO (13:47)
--- NOTE | 2020-07-03 14:10 | NUR ---
PT IS RESTING IN BED, NO COMPLAINS OF PAIN, 1/2 NS RUNNING AT 50ML/HR, WILL CONTINUE TO MONITOR.
[2020-07-03 15:28] VITALS: BP 127/57
--- NOTE | 2020-07-03 17:05 | NUR ---
PT DISCHARGED HOME WITH DAUGHTER YULIA, DISCHARGE TEACHING AND INSTRUCTIONS WERE GIVEN, PT VERBALIZED UNDERSTANDING, IV LINE REMOVED, ARMBANDS REMOVED, TELEMONITOR REMOVED.
== END 2020-07-03 17:18 | disposition home or self-care (01) | DRG 871 ==
LOC: MED 14:47 → MTU 19:22
PROVIDERS: ADMIT Family Medicine; ATTEND Family Medicine
DX: A41.9 Sepsis, unspecified organism (principal); J69.0 Pneumonitis due to inhalation of food and vomit; I21.A1 Myocardial infarction type 2; N17.0 Acute kidney failure with tubular necrosis; I50.33 Acute on chronic diastolic (congestive) heart failure; J96.01 Acute respiratory failure with hypoxia; I13.0 Hypertensive heart and chronic kidney disease with heart failure and stage 1 through stage 4 chronic kidney disease, or unspecified chronic kidney disease; Z20.828 Contact with and (suspected) exposure to other viral communicable diseases; E11.22 Type 2 diabetes mellitus with diabetic chronic kidney disease; N18.9 Chronic kidney disease, unspecified; E83.42 Hypomagnesemia; E78.5 Hyperlipidemia, unspecified; I48.91 Unspecified atrial fibrillation; R65.20 Severe sepsis without septic shock; Z79.899 Other long term (current) drug therapy
CPT/HCPCS: 36415; 71045; 71250; 76770; 80048; 80053; 80305; 81003; 82150; 82436; 82570; 83036; 83605; 83690; 83735; 83880; 84100; 84300; 84436; 84439; 84443; 84479; 84484; 85025; 85610; 85730; 86140; 87040; 87081; 87086; 92526; 93005; 94640; 96365; 96367; 96375; 97110; 97112; 97116; 97161-GP; 97530; 99291; J1644; J2001; J2060; J2543; J3370; J3480; J7030; J7060; U0003